=== PATIENT | female | born 1985 | race Caucasian/White ===

== ENCOUNTER 2016-08-30 16:10 | Observation (INO) | payer MEDICARE, MEDICAID ==
[~2016-08-30] VITALS: Ht 157.5 cm; Wt 78.0 kg
[~2016-08-30 16:10] MED LIST: BENADRYL50 MG PO; NORCO 10/325 TA1 TA1 PO; OXANDRIN10 MG PO; OXYCONTIN10 MG PO; STOOL SOFTENER240 MG PO; SYNTHROID75 MCG PO; TENORMIN25 MG PO; TYLENOL #4 W/CO1 TAB; XANAX2 MG PO
--- NOTE | 2016-08-30 17:57 | NUR ---
PATIENT REQUESTED SOMETHING FOR "STOMACH CRAMPS." CHECKED ORDERS, NO ORDERS. TOLD PATIENT THERE IS NOTHING ORDERED I STATED "HE DID NOT ORDER ANYTHING FOR STOMACH CRAMPS. HE DID PUT IN A CONSULT FOR THE GI DOCTOR SO I DON'T KNOW IF MAYBE HE IS WANTING TO SEE WHAT SHE IS GOING TO ORDER OR WHAT." PATIENT STATED "WELL, HE DID NOT ORDER ANYTHING BECAUSE HE ORDERED MY SUPPOSITORY AND I WAS NOT ABLE TO GET IT BECAUSE IT WAS $800. I AM ABOUT TO GET VERY FRUSTRATED ABOUT THIS." I STATED "LET ME GO CALL HIM AND I WILL BE BACK TO ACCESS YOUR PORT." SPOKE WITH , SEE ORDERS.
[2016-08-30 18:26] LABS: BASOPHILS 0.3 % (0.0-2.0); EOSINOPHILS 3.7 % (0-7); HEMATOCRIT 39.8 % (36.0-48.0); HEMOGLOBIN 13.5 g/dL (12-16); IMMATURE GRANULOCYTES 0.1 % (0-5); LYMPHOCYTES 27.8 % (15-50); MCH 33.3 pg (26.0-34.0); MCHC 33.9 g/dL (31.0-37.0); MEAN PLATELET VOLUME 10.2 fL (7.4-10.4); NEUTROPHILS 58.1 % (40-80); PLATELET COUNT 214 10x3/uL (130-400); RBC 4.06 10x6/uL (4.00-5.40); RDW 12.3 % (11.5-14.5); WBC 7.5 10x3/uL (4.8-10.8)
[2016-08-30 18:47] VITALS: BP 140/94; BMI 31.5
[2016-08-30 18:49] LABS: ALBUMIN 3.6 g/dL (3.4-5.0); ANION GAP 11.4 mmol/L (8-16); BILIRUBIN - TOTAL 0.32 mg/dL (0.2-1.3); CALCIUM 8.9 mg/dL (8.5-10.1); CARBON DIOXIDE 29.6 mmol/L (21.0-32.0); PROTEIN - SERUM 6.8 g/dL (6.4-8.2)
[2016-08-30 19:06] LABS: AMYLASE - SERUM 66 U/L (25-115); LIPASE 160 U/L (73-393)
[2016-08-30] MEDS ORDERED: TYLENOL W/CODEI1 TAB PO (19:08)
[2016-08-30] MEDS ORDERED: DANOCRINE200 MG PO (19:11)
[2016-08-30] MEDS ORDERED: LIPITOR20 MG PO (19:12)
--- NOTE | 2016-08-30 20:00 | NUR ---
ASSESSMENT COMPLETED, PT C/O ABD CRAMPING, WAS MEDICATED BY PREVIOUS SHIFT, NO ACUTE DISTRESS NOTED, SR'S UP X2, CL IN REACH, WILL MONITOR
[2016-08-30 21:00] VITALS: BP 114/73
--- NOTE | 2016-08-30 21:36 | NUR ---
MEDS GIVEN PER MAR, TORY WELL, CL IN REACH
--- NOTE | 2016-08-30 21:40 | NUR ---
EGD PROCEDURE EXPLAINED, CONSENTS OBTAINED, INSTRUCTED PT ON NPO STATUS AFTER MIDNIGHT, SANDWHICH PROVIDED PER REQUEST, CL IN REACH
--- NOTE | 2016-08-30 22:17 | NUR ---
PRN DILAUDID GIVEN FOR C/O ABD PAIN 04/24, TORY WELL, CL IN REACH
[2016-08-31 05:00] VITALS: BP 93/48
--- NOTE | 2016-08-31 05:28 | NUR ---
PRN DILAUDID GIVEN FOR C/O ABD PAIN 03/25, TORY WELL, CL IN REACH
--- NOTE | 2016-08-31 07:00 | NUR ---
REPORT RECEIVED FROM CARDIOTHORACIC ICU RN NURSE. CALL LIGHT IN REACH.
[2016-08-31 07:57] VITALS: BP 105/57
--- NOTE | 2016-08-31 07:58 | NUR ---
ASSESSMENT COMPLETED. STATES PAIN IS A 10. WANTS MD CALLED. NO OTHER NEEDS VOICED. CALL LIGHT IN REACH. WILL CONTINUE WITH PLAN OF CARE.
--- NOTE | 2016-08-31 08:21 | NUR ---
URINE SAMPLE COLLECTED AND SENT TO LAB FOR TESTING.
--- NOTE | 2016-08-31 08:34 | NUR ---
CALLED DR. JACOBS'S OFFICE FOR PATIENT'E REQUEST. SPOKE WITH HER NURSE. WAITING REIMBURSEMENT SPECIALIST BACK.
--- NOTE | 2016-08-31 08:39 | NUR ---
SPOKE WITH GEORGES AT DR. JACOBS'S OFFICE. STATES THAT PATIENT CANNOT HAVE DILAUDID 2 MG IV EVERY 4 HOURS SHE WANTS BUT SHE CAN HAVE NORCO 10/325 EVERY4-6 PRN FOR BREAKTHROUGH PAIN. WILL INFORM PATIENT.
--- NOTE | 2016-08-31 09:14 | NUR ---
DILAUDID 1 MG SIVP PER C/O PAIN WITH AM MEDS ADMINISTSERED. CALL LIGHT IN REACH.
[2016-08-31 09:20] LABS: APPEARANCE CLEAR (CLEAR); BILIRUBIN NEGATIVE (NEGATIVE); COLOR YELLOW (YELLOW); GLUCOSE NEGATIVE (NEGATIVE); KETONE NEGATIVE (NEGATIVE); LEUKOCYTE ESTERASE NEGATIVE (NEGATIVE); NITRITE NEGATIVE (NEGATIVE); PROTEIN NEGATIVE (NEGATIVE); UROBILINOGEN NORMAL (NORMAL)
--- NOTE | 2016-08-31 11:36 | NUR ---
NORCO PO PER PATIENT REQUEST FOR BREAKTHROUGH PAIN. ZOFRAN 8 MG SIVP. CALL LIGHT IN REACH.
[2016-08-31 12:35] VITALS: BP 90/50
--- NOTE | 2016-08-31 12:56 | NUR ---
Patient Name: MAXWELL LOZA Admission Status: Urgent Accout number: [id number] Admission Date: 08-30-2016 : 1985 Admission Diagnosis: Attending: SOHAM Current LOS: 1 Anticipated DC Date: 09-03-2016 Planned Disposition: Home Primary Insurance: [employer] CHOICE PPO MCR ADVANT Discharge Planning Comments: CM MET WITH PATIENT REGARDING D/C NEEDS AND PLANS. PATIENT STATED SHE LIVES WITH HER BOYFRIEND AND HE WILL DRIVE HER HOME AT DISCHARGE. PATIENT STATED THERE ARE ABOUT 20 STEPS W/RAILS TO ENTER HOME AND NO STAIRS INSIDE. PATIENT IS INDEPENDENT WITH HER CARE AND HAS NO DME AT HOME. PATIENTS PCP IS DR. LINDSEY AND USES [facility] IN [place] ON [facility]. PATIENT HAS NOT HAD HOME HEALTH AND DENIES NEEDS FOR IT. CM WILL CONTINUE TO FOLLOW PATIENT WITH D/C NEEDS AND PLANS. PCP DR. LINDSEY [facility] ([phone]) IZABELA LYON ([place]OREY) [phone] Equipment Driver: Dipika Portillo Is the patient Alert and Oriented? Yes 0 * How many steps to enter\exit or inside your home? 20 W/RAILS 0 * PCP DR. LINDSEY 0 * Pharmacy [facility] ([facility] [phone] * Preadmission Environment Home with Family 0 * ADLs Independent 0 * Equipment None 0 * List name and contact numbers for known caregivers / representatives who currently or will assist patient after discharge: IZABELA LYON ([place]) [phone] * Community resources currently utilized None 0 * Additional services required to return to the preadmission environment? Yes 0 * Can the patient safely return to the preadmission environment? Yes 0 * Has this patient been hospitalized within the prior 30 days at any hospital? No 0 Grand Total: 0
--- NOTE | 2016-08-31 13:32 | NUR ---
MARKO HUNT, ADMINISTERED DILAUDID IV.
[2016-08-31 13:46] VITALS: Ht 157.5 cm; Wt 78.0 kg
[2016-08-31 14:36] LABS: HCG URINE NEGATIVE (NEGATIVE)
[2016-08-31 15:31] VITALS: BP 104/57
--- NOTE | 2016-08-31 15:31 | NUR ---
REQUESTING PAIN PILL. GIANA 2 PO. CALL LIGHT IN REACH.
--- NOTE | 2016-08-31 16:30 | NUR ---
TO GI VIA LAB.
--- NOTE | 2016-08-31 18:11 | NUR ---
BACK TO ROOM. DILAUDID 1 MG SIVP. NO CHANGES IN INITIAL ASSESSMENT. VISITORS IN ROOM. CALL LIGHT IN REACH. WILL CONTINUE WITH PLAN OF CARE.
--- NOTE | 2016-08-31 19:10 | NUR ---
ASSESSMENT COMPLETED, NO ACUTE DISTRESS NOTED, VISITORS IN ROOM, CL IN REACH
--- NOTE | 2016-08-31 21:18 | NUR ---
MEDS GIVEN PER MAR ALONG WITH NORCO FOR ABD PAIN 02/22, TORY WELL, CL IN REACH
[2016-08-31 21:25] VITALS: BP 112/68
--- NOTE | 2016-08-31 22:15 | NUR ---
AMBULATING IN [place] WITH VISITOR, NO DISTRES NOTED
--- NOTE | 2016-09-01 00:53 | NUR ---
DILAUDID GIVEN PER MAR FOR C/O ABD PAIN 02/22, TORY WELL, CL IN REACH
--- NOTE | 2016-09-01 02:46 | NUR ---
PT RETURNED FROM WALKING, REQUESTED ZOFRAN, ADMINISTERED, PER LEIDA, TORY WELL, CL IN REACH
[2016-09-01 06:50] VITALS: BP 110/63
--- NOTE | 2016-09-01 07:00 | NUR ---
REPORT RECEIVED FROM FLASK FITTER NURSE. CALL LIGHT IN REACH.
[2016-09-01 08:20] VITALS: BP 101/53
--- NOTE | 2016-09-01 08:41 | NUR ---
ASSESSMENT COMPLETED. AM MEDS ADMINISTERED PO WITH [place] [employer]. CALL LIGHT IN REACH. WILL CONTINUE WITH PLAN OF CARE. PATIENT WALKS IN [place] CONSTANTLY.
--- NOTE | 2016-09-01 10:10 | NUR ---
DILAUDID 1 MG SIVP PER C/O PAIN OF 8. CALL LIGHT IN REACH.
--- NOTE | 2016-09-01 11:43 | NUR ---
CARAFATE PO. STATES PAIN HAS DECREASED TO A 6.
[2016-09-01 12:19] VITALS: BP 108/65
--- NOTE | 2016-09-01 12:50 | NUR ---
AFTER EATING LUNCH, PATIENT DECIDED TO WALK IN HALLWAYS.
--- NOTE | 2016-09-01 14:44 | OP ---
PATIENT NAME: MAXWELL ROGERS MEDICAL RECORD: [id number] :[birth year] LOCATION:D[address] [id number] ADMISSION DATE:08/30/16 SURGEON: ABIMBOLA JACOBS MD DATE OF OPERATION: 08/31/2016 PROCEDURE: EGD with biopsy. REFERRING PHYSICIAN: Naeem Lindsey MD INDICATIONS: Ms. Rogers is a pleasant 30-year-old woman with a history of hereditary angioedema, who presented with symptoms of nausea, vomiting, abdominal pain. Her abdominal pain is chronic and she recalls that dating back to age 7. She has had a recent flare of her abdominal pain, is predominantly in the epigastric area, but also in bilateral lower abdomen. She takes danazol t.i.d. for her hereditary angioedema control. She had a right oophorectomy 08/07/2016. Her last CT scan was in [facility] in [place] May 2016 with finding showing the right adnexal mass. She also has a history of scoliosis, it has been advised she needs surgery (i.e., claus placement). She has an appointment with Dr. Reeves in September 2016. She presents for inpatient EGD. PREMEDICATIONS: Total IV anesthesia (ASA 3, history of hereditary angioedema). INSTRUMENT: Olympus video gastroscope. PROCEDURE AND FINDINGS: After receiving informed consent, Ms. Rogers's posterior pharynx was anesthetized with Cetacaine spray, placed in left lateral decubitus position and sedated as per anesthesia. After achieving an adequate level of sedation, gastroscope was introduced per orally and advanced to the duodenum without difficulty. The esophageal mucosa was without erythema, ulcers, strictures or masses, appeared normal down the GE junction. Small sliding type hiatal hernia is present. Gastric mucosa was remarkable for diffuse erythema involving the antrum with a bilious fluid backwash. Antral biopsies were obtained to rule out Helicobacter pylori. There were no lesions seen along the incisura, in the cardia or fundus, or in the body of the stomach. Pylorus was patent and competent. Duodenal mucosa was without erythema or ulcers, appeared normal through the second portion. Biopsies were taken from the second portion of duodenum to rule out celiac disease. The gastroscope was then withdrawn. Ms. Rogers tolerated the procedure well, no immediate complications. ASSESSMENT: 1. Small sliding type hiatal hernia. 2. Bilious gastritis status post antral biopsy. RECOMMENDATIONS: 1. Protonix 40 mg p.o. daily. 2. Add Carafate 1 g p.o. 3 times a day. 3. Colonoscopy is contraindicated at this time secondary to her recent pelvic surgery can be done at a later date when she has appropriately recover from her post-oophorectomy. TRANSINT:[id number] Voice Confirmation ID: [id number] DOCUMENT ID: [id number] OPERATIVE REPORT [id number] MAXWELL ROGERS TERRI MD at 1444 CC: NAEEM LINDSEY MD [id number] DICTATION DATE: 08/31/16 174 BRUSHER: 08/31/16 9519 ADM IN [place] [id number] [place] [address]
--- NOTE | 2016-09-01 14:45 | NUR ---
REQUESTING IV PAIN MED. DILAUDID 1 MG SIVP. CALL LIGHT IN REACH.
[2016-09-01 16:55] VITALS: BP 110/77
--- NOTE | 2016-09-01 16:55 | NUR ---
PATIENT ALERT IN HIGH TATE POSITION. RESPIRATIONS EVEN AND UNLABORED. SIDE RAILS UP X2. BED IN LOW POSITION. CALL LIGHT IN REACH.
--- NOTE | 2016-09-01 16:56 | NUR ---
NORCO AND CARAFATE PO.
--- NOTE | 2016-09-01 18:14 | NUR ---
TO CT AND BACK. DILAUDID 1 MG SIVP PER PATIENT REQUEST D/T PAIN. NO CHANGES IN INITIAL ASSESSMENT. CALL LIGHT IN REACH. WILL CONTINUE WITH PLAN OF CARE.
--- NOTE | 2016-09-01 20:00 | NUR ---
PATIENT IN BED WATCHING TV. HOB 30 DEGREES. AAOX4. RR EVEN AND UNLABORED. 0 S/S OF DISTRESS. DENIES PAIN AT THIS TIME. LEFT PORT PATENT WITH NO REDNESS OR SWELLING. BOYFRIEND AT BEDSIDE. SRX2. BED LOW. CALL LIGHT WITHIN REACH.
--- NOTE | 2016-09-01 21:05 | NUR ---
ASSESSMENT COMPLETE. NIGHTTIME MEDS GIVEN. PATIENT STATES THAT HER PAIN IS NOW AN 8/10. EXPLAINED TO PATIENT THAT PAIN MEDICATION WAS NOT DUE UNTIL 2200.
--- NOTE | 2016-09-01 22:05 | NUR ---
DILAUDID GIVEN FOR PAIN. EXPLAINED TO PATIENT THAT DR. LINDSEY DC'D HER NORCO AND CHANGED THE DILAUDID FROM EVERY 4 HOURS TO EVERY 8 HOURS.
[2016-09-01 23:42] LABS: UDS - AMPHET NEGATIVE QUAL (NEGATIVE); UDS - BARB NEGATIVE QUAL (NEGATIVE); UDS - BENZO NEGATIVE QUAL (NEGATIVE); UDS - COCAINE NEGATIVE QUAL (NEGATIVE); UDS - METH NEGATIVE QUAL (NEGATIVE); UDS - OPIATE POSITIVE QUAL (NEGATIVE); UDS - PCP NEGATIVE QUAL (NEGATIVE); UDS - THC NEGATIVE QUAL (NEGATIVE)
[2016-09-02 00:59] VITALS: BP 113/61
--- NOTE | 2016-09-02 01:00 | NUR ---
PATIENT STATES PAIN IS BACK TO AN 810. B&O SUPPOSITORY GIVEN PER ORDER.
[2016-09-02 04:00] VITALS: BP 106/64
[2016-09-02 06:31] LABS: ANION GAP 10.6 mmol/L (8-16); CALCIUM 8.5 mg/dL (8.5-10.1); CARBON DIOXIDE 28.7 mmol/L (21.0-32.0); CREATININE - SERUM 1.2 mg/dL (0.6-1.3); POTASSIUM - SERUM 4.3 mmol/L (3.5-5.1)
[2016-09-02 07:59] VITALS: BP 105/62
--- NOTE | 2016-09-02 08:00 | NUR ---
PT STATES "I'M NOT HAPPY WITH MY CURRENT PAIN MEDICATION, I REFUSE THE SUPPOSITORY IT CAUSED MORE CRAMPS THEN HELPED." PT NOTIFIED DILAUDED COULD NOT BE GIVEN TILL 1:45, NO OTHER COMPLAINTS, PT ASSESSMENT COMPLETE, CALL LIGHT IN REACH, WILL CONTINUE PLAN OF CARE
--- NOTE | 2016-09-02 08:55 | NUR ---
AWAKE AND ALERT. ORIENTED X3. C/O ABDOMINAL PAIN THIS AM. TO SOON FOR PRN MEDS. GIVEN ICE PACK TO SEE IF IT WOULD HELP ANY. REPORTS HEAT ONLY INCREASES THE PAIN. WILL MONITOR. LUNGS ARE CLEAR BILATERALLY, NO COUGH NOTED. SKIN IS INTACT WITHOUT REDNESS. LEFT PORT IS PATENT WITHOUT REDNESS AT INSERTION SITE. FAMILY AT BEDSIDE. DENIES NEEDS. REFUSED BREAKFAST WELL OFFER OF ALTERNATIVE FOODS.
--- NOTE | 2016-09-02 10:35 | NUR ---
PT LEFT ROOM FOR A WALK, NO CURRENT COMPLAINTS, WILL CONTINUE TO MONITOR
[2016-09-02 12:08] VITALS: BP 128/82
--- NOTE | 2016-09-02 15:46 | NUR ---
PT COMPLAINED OF HAVING A DIFFICULT TIME CATCHING HER BREATH, O2 SAT 95% RA, NASAL CANNULA ON 2L OXYGEN PLACED ON PT
--- NOTE | 2016-09-02 16:00 | NUR ---
B&O SUPP GIVEN FOR ABDOMINAL CRAMPING, MEDS GIVEN PER MAR, NO CURRENT COMPLAINTS
[2016-09-02 16:23] VITALS: BP 117/70
--- NOTE | 2016-09-02 16:45 | NUR ---
ZOFRAN GIVEN FOR NAUSEA, PAIN LEVEL AT A 8, NO CURRENT COMPLAINTS, WILL CONTINUE TO MONITOR
--- NOTE | 2016-09-02 16:57 | NUR ---
PT RESTING IN BED, REQUESTED ZOFRAN FOR NAUSEA-GIVEN PER SEP, NO OTHER COMPLAINTS AT THIS TIME, CALL LIGHT IN REACH, PAIN AN 8 ON A SCALE OF 0-10, BED LOWEST POSITION, WILL CONTINUE PLAN OF CARE
[2016-09-02 19:00] VITALS: BP 109/68
--- NOTE | 2016-09-02 19:30 | NUR ---
REC'D IN ROOM AWAKE AND ALERT. RESP EVEN AND UNLABORED WITH NO DISTRESS NOTED. CAN EXPRESS NEEDS AND WANTS. C/O PAIN RATING 10/10 IN PAIN SCALE.ASSESSMENT COMPLETED. FAMILY AT BEDSIDE. C/L IN REACH AT BEDSIDE
--- NOTE | 2016-09-02 22:23 | NUR ---
UP OUT OF BED CLEANING UP THE SINK. SIGNIFICANT OTHER AT THE BEDSIDE. HAS REQUESTED A SUPPOSITORY AND ZOFRAN AT THIS TIME. ASSIGNED NURSE ADVISED OF PT NEED. NO DISTRESS NOTED AND RESPIRATIONS ARE EASY.
[2016-09-03] VITALS: BP 101/55
[2016-09-03 04:00] VITALS: BP 105/52
--- NOTE | 2016-09-03 07:58 | NUR ---
PT. AWAKE ALERT ORIENTED IN BED RESP. EVEN AND NONLABORED WITH LUNG SOUNDS CLEAR AND COMPLAINTS OF PAIN OF 9 ON SCALE OF 1-10 IN ABDOMEN. LEFT PORT PATENT WITH NO REDNESS AT INSERTION SITE. VISITOR IN ROOM WITH PT. BED AT LOWEST LEVEL AND SRX2 CALL LIGHT IN REACH WILL CONTINUE TO MONITOR
[2016-09-03 08:04] VITALS: BP 102/69
--- NOTE | 2016-09-03 08:49 | NUR ---
PT. C/O OF NUASEA. ZOFRAN 8MG IV GIVEN SLOW IVP AT THIS TIME. WILL CONTINUE TO MONITOR PT.
--- NOTE | 2016-09-03 09:15 | NUR ---
DR. LINDSEY CALLED PER PT. REQUEST FOR PAIN MEDS OR TO DISCHARGE HOME. NO NEW ORDERS STATED HE WOULD BE IN THIS AFTERNOON TO DISCHARGE PT.
[2016-09-03 12:28] VITALS: BP 109/58
--- NOTE | 2016-09-03 15:00 | NUR ---
SPOKE TO DR LINDSEY FOR PT. DESIRE TO DISCHARGE HOME. NO NEW ORDERS.
--- NOTE | 2016-09-03 19:25 | NUR ---
PT ASSESSMENT COMPLETED AT THIS TIME PT AAOX4 AMBULATORY WITH NO ASSISTANCE NEEDED AND INQUIERED ABOUT DR FOOTE ROUNDING AND DISCHARGE HOME INFORM PT THAT ONCE ORDER WAS RECIVED WOULD GET D/C PAPERS AND PT WOULD BE ABLE TO LEAVE THIS PM PT VERBALIZED UNDERSTANDING
--- NOTE | 2016-09-03 20:40 | NUR ---
DR STEWART ROUNDED AND D/C PAPERS RECIVED [facility] WORKING ON D/C PAPERS AND WHEN COMPLETED WILL REVIEW WITH PT. PORT TO LEFT CHEST D/C NEEDLE INTACT AND BANDAGE 2X2 AND TEGEDERM PLACED NO DISTRESS OBSERVED CALL LIGHT IN REACHS RX2 WILL MONITOR
[2016-09-03] MEDS ORDERED: HYDROCODON-ACE1 EAC7 PO (20:45)
[2016-09-06 15:25] LABS: C1 ESTERASE INHIBITOR 15 mg/dL (21-39)
== END 2016-09-03 21:56 | disposition home or self-care (01) ==
LOC: D.MS 16:10 → OBSVTIME 16:10 → D.SDCHOLD 16:10 → D.MS 16:20
PROVIDERS: Internal Medicine Gastroenterology; ADMIT Legal Medicine
DX: R10.9 Unspecified abdominal pain (principal); D84.1 Defects in the complement system; K29.60 Other gastritis without bleeding; K44.9 Diaphragmatic hernia without obstruction or gangrene; M41.9 Scoliosis, unspecified; I10 Essential (primary) hypertension; E78.5 Hyperlipidemia, unspecified; E03.9 Hypothyroidism, unspecified

== ENCOUNTER 2016-09-22 09:17 | Emergency (ER) | payer MEDICARE, MEDICAID ==
[2016-08-31 13:46] VITALS: BMI 31.4
[~2016-09-22 09:17] MED LIST changes: +DANOCRINE200 MG PO; +HYDROCODON-ACE1 EAC7 PO; +LIPITOR20 MG PO; +TYLENOL W/CODEI1 TAB PO
[2016-09-22 10:21] LABS: BASOPHILS 0.4 % (0.0-2.0); EOSINOPHILS 2.8 % (0-7); HEMATOCRIT 41.7 % (36.0-48.0); HEMOGLOBIN 14.3 g/dL (12-16); IMMATURE GRANULOCYTES 0.2 % (0-5); LYMPHOCYTES 20.4 % (15-50); MCH 33.3 pg (26.0-34.0); MCHC 34.3 g/dL (31.0-37.0); MCV 97.2 fL (80.0-100.0); MEAN PLATELET VOLUME 10.8 fL (7.4-10.4); MONOCYTES 9.1 % (2-11); NEUTROPHILS 67.1 % (40-80); PLATELET COUNT 208 10x3/uL (130-400); RBC 4.29 10x6/uL (4.00-5.40); RDW 12.7 % (11.5-14.5); WBC 9.2 10x3/uL (4.8-10.8)
== END 2016-09-22 15:14 | disposition left against medical advice (07) ==
LOC: D.ER 09:17
PROVIDERS: Emergency Medicine
DX: R10.84 Generalized abdominal pain (principal)

== ENCOUNTER 2016-10-13 09:00 | Emergency (ER) | payer MEDICARE, MEDICAID ==
[2016-08-31 13:46] VITALS: BMI 31.4
[2016-10-13 10:13] LABS: BASOPHILS 0.5 % (0.0-2.0); EOSINOPHILS 3.7 % (0-7); HEMATOCRIT 40.4 % (36.0-48.0); HEMOGLOBIN 13.9 g/dL (12-16); IMMATURE GRANULOCYTES 0.3 % (0-5); LYMPHOCYTES 17.1 % (15-50); MCHC 34.4 g/dL (31.0-37.0); MEAN PLATELET VOLUME 10.9 fL (7.4-10.4); MONOCYTES 10.6 % (2-11); NEUTROPHILS 67.8 % (40-80); PLATELET COUNT 247 10x3/uL (130-400); RBC 4.21 10x6/uL (4.00-5.40); RDW 12.5 % (11.5-14.5)
[2016-10-13 10:17] LABS: APPEARANCE CLEAR (CLEAR); BILIRUBIN NEGATIVE (NEGATIVE); COLOR YELLOW (YELLOW); GLUCOSE NEGATIVE (NEGATIVE); KETONE NEGATIVE (NEGATIVE); LEUKOCYTE ESTERASE NEGATIVE (NEGATIVE); NITRITE NEGATIVE (NEGATIVE); PROTEIN NEGATIVE (NEGATIVE); SPECIFIC GRAVITY 1.005 (1.005-1.020); UROBILINOGEN NORMAL (NORMAL)
[2016-10-13 10:25] LABS: UDS - AMPHET NEGATIVE QUAL (NEGATIVE); UDS - BARB NEGATIVE QUAL (NEGATIVE); UDS - BENZO NEGATIVE QUAL (NEGATIVE); UDS - COCAINE NEGATIVE QUAL (NEGATIVE); UDS - METH NEGATIVE QUAL (NEGATIVE); UDS - OPIATE POSITIVE QUAL (NEGATIVE); UDS - PCP NEGATIVE QUAL (NEGATIVE); UDS - THC NEGATIVE QUAL (NEGATIVE)
[2016-10-13 10:37] LABS: ALBUMIN 3.6 g/dL (3.4-5.0); ALKALINE PHOSPHATASE 68 U/L (46-116); ALT (SGPT) 48 U/L (10-68); AMYLASE - SERUM 46 U/L (25-115); BILIRUBIN - TOTAL 0.39 mg/dL (0.2-1.3); CALC OSMOLALITY 274 mosm/kg (275-300); CALCIUM 9.3 mg/dL (8.5-10.1); CARBON DIOXIDE 26.5 mmol/L (21.0-32.0); CHLORIDE - SERUM 106 mmol/L (98-107); CREATININE - SERUM 0.9 mg/dL (0.6-1.3); GLUCOSE 83 mg/dL (74-106); LIPASE 131 U/L (73-393); POTASSIUM - SERUM 3.9 mmol/L (3.5-5.1); PROTEIN - SERUM 7.3 g/dL (6.4-8.2); SODIUM 140 mmol/L (136-145); UREA NITROGEN 5 mg/dL (7-18); eGFR NON AFRICAN AMERICAN 77 mL/min (90-120)
== END 2016-10-13 11:15 | disposition home or self-care (01) ==
LOC: D.ER 09:00
PROVIDERS: Family Medicine
DX: R11.10 Vomiting, unspecified (principal); R10.9 Unspecified abdominal pain; F41.9 Anxiety disorder, unspecified; I10 Essential (primary) hypertension

== ENCOUNTER 2018-07-20 04:13 | Emergency (ER) | payer MEDICARE, MEDICAID ==
[~2018-07-20] VITALS: Ht 157.5 cm; Wt 77.1 kg
[2018-07-20 04:19] VITALS: Ht 157.5 cm; Wt 77.1 kg
[2018-07-20] MEDS ORDERED: OMEPRAZOLE40 MG PO (04:20)
[2018-07-20] MEDS ORDERED: XANAX2 MG PO (04:21)
[2018-07-20 05:12] LABS: BASOPHILS 0.4 % (0-2); EOSINOPHILS 2.3 % (0-7); HEMATOCRIT 41.4 % (36.0-48.0); HEMOGLOBIN 14.3 g/dL (12-16); IMMATURE GRANULOCYTES 0.2 % (0-5); LYMPHOCYTES 23.6 % (15-50); MCH 33.8 pg (26.0-34.0); MCHC 34.5 g/dL (31.0-37.0); MCV 97.9 fL (80.0-100.0); MONOCYTES 7.9 % (2-11); NEUTROPHILS 65.6 % (40-80); PLATELET COUNT 183 10x3/uL (130-400); RBC 4.23 10x6/uL (4.00-5.40); WBC 5.7 10x3/uL (4.8-10.8)
[2018-07-20 05:25] LABS: ALBUMIN 3.4 g/dL (3.4-5.0); ANION GAP 13.1 mmol/L (8-16); BILIRUBIN - TOTAL 0.61 mg/dL (0.2-1.3); CALCIUM 8.9 mg/dL (8.5-10.1); CARBON DIOXIDE 27.6 mmol/L (21.0-32.0); POTASSIUM - SERUM 3.7 mmol/L (3.5-5.1); PROTEIN - SERUM 7.1 g/dL (6.4-8.2)
[2018-07-20 06:35] LABS: APPEARANCE CLEAR (CLEAR); BILIRUBIN NEGATIVE (NEGATIVE); COLOR YELLOW (YELLOW); GLUCOSE NEGATIVE (NEGATIVE); KETONE NEGATIVE (NEGATIVE); NITRITE NEGATIVE (NEGATIVE); PROTEIN NEGATIVE (NEGATIVE); UROBILINOGEN NORMAL (NORMAL)
[2018-07-20 06:37] LABS: BACTERIA FEW /hpf (NONE SEEN); EPITHELIAL CELLS 0-5 /hpf (0-5); RED CELLS - URINE NONE SEEN /hpf (0-5); WHITE CELLS - URINE 0-5 /hpf (0-5)
[2018-07-20] MEDS ORDERED: BENTYL10 MG PO (07:16)
[2018-07-20 08:06] VITALS: BP 139/83
== END 2018-07-20 08:07 | disposition home or self-care (01) ==
LOC: D.ER 04:13
PROVIDERS: Family Medicine
DX: D84.1 Defects in the complement system (principal); R11.2 Nausea with vomiting, unspecified; I10 Essential (primary) hypertension; Z86.59 Personal history of other mental and behavioral disorders; F17.200 Nicotine dependence, unspecified, uncomplicated

== ENCOUNTER 2018-09-13 04:31 | Emergency (ER) | payer MEDICARE, MEDICAID ==
[~2018-09-13] VITALS: Ht 157.5 cm; Wt 79.5 kg
[~2018-09-13 04:31] MED LIST changes: +BENTYL10 MG PO; +OMEPRAZOLE40 MG PO
[2018-09-13 04:38] VITALS: Ht 157.5 cm; Wt 79.5 kg
[2018-09-13 05:23] LABS: BASOPHILS 0.6 % (0-2); EOSINOPHILS 3.7 % (0-7); HEMATOCRIT 43.5 % (36.0-48.0); IMMATURE GRANULOCYTES 0.1 % (0-5); LYMPHOCYTES 27.7 % (15-50); MCH 33.1 pg (26.0-34.0); MCHC 34.5 g/dL (31.0-37.0); MONOCYTES 11.1 % (2-11); NEUTROPHILS 56.8 % (40-80); PLATELET COUNT 201 10x3/uL (130-400); RBC 4.53 10x6/uL (4.00-5.40); RDW 12.3 % (11.5-14.5); WBC 6.8 10x3/uL (4.8-10.8)
[2018-09-13 05:35] LABS: ALBUMIN 3.5 g/dL (3.4-5.0); ANION GAP 14.5 mmol/L (8-16); BILIRUBIN - TOTAL 0.18 mg/dL (0.2-1.3); CALCIUM 9.1 mg/dL (8.5-10.1); CREATININE - SERUM 1.1 mg/dL (0.6-1.3); POTASSIUM - SERUM 4.5 mmol/L (3.5-5.1); PROTEIN - SERUM 7.4 g/dL (6.4-8.2)
[2018-09-13] MEDS ORDERED: ZOFRAN ODT4 MG/UDTAB PO (07:21)
[2018-09-13] MEDS ORDERED: LEVSIN/ANASP0.125 MG PO (07:21)
[2018-09-13] MEDS ORDERED: FLORASTOR250 MG PO (07:21)
[2018-09-13 07:56] VITALS: BP 127/83
[2018-09-13 08:07] LABS: APPEARANCE CLEAR (CLEAR); BILIRUBIN NEGATIVE (NEGATIVE); COLOR YELLOW (YELLOW); GLUCOSE NEGATIVE (NEGATIVE); KETONE NEGATIVE (NEGATIVE); NITRITE NEGATIVE (NEGATIVE); PROTEIN NEGATIVE (NEGATIVE); UROBILINOGEN NORMAL (NORMAL)
== END 2018-09-13 07:54 | disposition home or self-care (01) ==
LOC: D.ER 04:31
PROVIDERS: Family Medicine
DX: D84.1 Defects in the complement system (principal); R10.9 Unspecified abdominal pain

== ENCOUNTER 2019-01-22 00:07 | Inpatient (IN) | payer MEDICARE, MEDICAID ==
[~2019-01-22] VITALS: Ht 157.5 cm; Wt 69.9 kg
[~2019-01-22 00:07] MED LIST changes: +FLORASTOR250 MG PO; +LEVSIN/ANASP0.125 MG PO; +ZOFRAN ODT4 MG/UDTAB PO
[2019-01-22 01:30] LABS: BASOPHILS 0.4 % (0-2); EOSINOPHILS 3.7 % (0-7); HEMATOCRIT 39.7 % (36.0-48.0); HEMOGLOBIN 13.4 g/dL (12-16); IMMATURE GRANULOCYTES 0.3 % (0-5); MCHC 33.8 g/dL (31.0-37.0); MCV 97.8 fL (80.0-100.0); MEAN PLATELET VOLUME 11.3 fL (7.4-10.4); MONOCYTES 8.5 % (2-11); NEUTROPHILS 53.1 % (40-80); PLATELET COUNT 204 10x3/uL (130-400); RBC 4.06 10x6/uL (4.00-5.40); WBC 9.6 10x3/uL (4.8-10.8)
[2019-01-22 01:36] LABS: APPEARANCE CLEAR (CLEAR); BILIRUBIN NEGATIVE (NEGATIVE); COLOR YELLOW (YELLOW); GLUCOSE NEGATIVE (NEGATIVE); KETONE NEGATIVE (NEGATIVE); NITRITE NEGATIVE (NEGATIVE); PROTEIN NEGATIVE (NEGATIVE); SPECIFIC GRAVITY 1.005 (1.005-1.020); UROBILINOGEN NORMAL (NORMAL)
[2019-01-22 01:50] LABS: ALBUMIN 3.5 g/dL (3.4-5.0); ANION GAP 10.9 mmol/L (8-16); BILIRUBIN - TOTAL 0.32 mg/dL (0.2-1.3); CALCIUM 8.7 mg/dL (8.5-10.1); CARBON DIOXIDE 28.9 mmol/L (21.0-32.0); POTASSIUM - SERUM 3.8 mmol/L (3.5-5.1); PROTEIN - SERUM 6.8 g/dL (6.4-8.2)
[2019-01-22 01:54] LABS: HCG SERUM NEGATIVE (NEGATIVE)
[2019-01-22 07:43] VITALS: BMI 28.2
[2019-01-22 08:49] VITALS: BP 121/58
[2019-01-22 11:00] VITALS: BP 108/60
[2019-01-22 13:23] VITALS: BP 110/68
[2019-01-22 13:39] VITALS: BMI 28.1
--- NOTE | 2019-01-22 14:32 | NUR ---
PT EDUCATED ON IMPORTANCE OF FALL PRECAUTIONS AND HOSPITAL STAY WITH INCREASED RISK FOR FALLS. PT VERBALIZES UNDERSTANDING AND REFUSES BED ALARM. PT EDUCATED ON FALL PRECAUTIONS AND NEED FOR PT TO STAY ON FLOOR. PT SIGNED RELEASE OF RESPONSIBLITY FOR BED/CHAIR ALARM. PAIN ADDRESSED. SEE EMAR. PT DENIES FURTHER NEEDS. BED IS IN THE LOWEST POSITION. CALL LIGHT AND BEDSIDE TABLE ARE WITHIN REACH. SIDE RAILS X 2. WILL CONT TO MONITOR.
--- NOTE | 2019-01-22 15:31 | NUR ---
PT REPORTS FEELING "WORSE THAN I DID WHEN I CAME IN". PT STATES, "I FEEL LIKE THEY REALLY NEED TO DO AN ULTRASOUND. I FEEL LIKE IT IS SOMETHING".
[2019-01-22 17:14] VITALS: Ht 157.5 cm; Wt 69.9 kg
[2019-01-22 17:43] VITALS: BP 109/60
--- NOTE | 2019-01-22 19:40 | NUR ---
IV RIGHT AC INFILTRATED. DC'D WITH CATHETER TIP INTACT. RESITED 20G IV TO LEFT FA X2 ATTEMPTS
[2019-01-22 20:50] VITALS: BP 126/74
[2019-01-23] VITALS: BP 128/70
--- NOTE | 2019-01-23 03:00 | NUR ---
IV LEFT FA INFILTRATED. PT AGITATED THAT HER PORT HAS NO BEEN ACCESSED YET AND DOES NOT WANT TO BE STUCK AGAIN FOR IV. PAGED SISI CLARK APN TO ACCESS LEFT CHEST PORT. AWAITING CALL BACK
[2019-01-23 04:00] VITALS: BP 111/61
--- NOTE | 2019-01-23 04:45 | NUR ---
SPOKE WITH SISI CLARK APN, ORDERS TO ACCESS PORT. LEFT CHEST PORT ACCESSED WITH 19G 1.5IN NICKERSON NEEDLE. DRESSING APPLIED. INFUSING NS @ 200 WITH DILAUDID COP EXAMINER.
--- NOTE | 2019-01-23 06:00 | NUR ---
PT HAS UNHOOKED HERSELF FROM SUPERVISOR BONDING TWICE STATING WE TOLD HER SHE COULD NOT GO DOWNSTAIRS TO SMOKE WITH THE SUPERVISOR BONDING SO SHE'S "NOT GOING DOWN WITH IT." PT WAS ALSO TOLD SHE COULD NOT SINCE SHE PUT THE NICOTINE PATCH ON. SHE CAME OUT OF ROOM UNHOOKED FROM IV POLE A LITTLE LATER HOLDING PATCH IN HER HAND STATING THAT "THIS NICOTINE IS NOT ENOUGH MG WHICH IS WHY I HAVE TO GO DOWNSTAIRS." LOOKED AT PATCH IN HAND AND IT WAS PT SCOPALIMINE PATCH FROM BEHIND HER EAR. PT STATES OVER AND OVER THAT SHE DOES NOT REMEMBER ANYONE PUTTING THIS PATCH BEHIND HER EAR. SHE THEN ASKED WHERE HER NICOTINE PATCH WAS. PULLED PT GOWN UP OVER LEFT ARM TO SHOW PT PATCH AND IT WAS NOT THERE AFTER BEING PLACED BEHIND THE LEFT UPPER ARM AT 2100. COULD NOT LOCATE PATCH. PT STATES IT "WASN'T HELPING ANYWAY" AND WALKED AWAY DOWNSTAIRS STATING SHE IS GOING TO SMOKE.
[2019-01-23 06:36] LABS: BASOPHILS 0 % (0-2); EOSINOPHILS 0 % (0-7); HEMATOCRIT 34.8 % (36.0-48.0); HEMOGLOBIN 11.8 g/dL (12-16); IMMATURE GRANULOCYTES 0.3 % (0-5); LYMPHOCYTES 3.7 % (15-50); MCHC 33.9 g/dL (31.0-37.0); MCV 97.2 fL (80.0-100.0); MEAN PLATELET VOLUME 11.4 fL (7.4-10.4); MONOCYTES 3.7 % (2-11); NEUTROPHILS 92.3 % (40-80); PLATELET COUNT 177 10x3/uL (130-400); RBC 3.58 10x6/uL (4.00-5.40); RDW 12.8 % (11.5-14.5)
[2019-01-23 06:48] LABS: WBC 14.2 10x3/uL (4.8-10.8)
[2019-01-23 06:57] LABS: ALBUMIN 3.2 g/dL (3.4-5.0); ALKALINE PHOSPHATASE 56 U/L (46-116); ALT (SGPT) 35 U/L (10-68); BILIRUBIN - TOTAL 0.29 mg/dL (0.2-1.3); CALC OSMOLALITY 279 mosm/kg (275-300); CALCIUM 8.5 mg/dL (8.5-10.1); CARBON DIOXIDE 25.8 mmol/L (21.0-32.0); CHLORIDE - SERUM 105 mmol/L (98-107); CREATININE - SERUM 0.8 mg/dL (0.6-1.3); POTASSIUM - SERUM 3.9 mmol/L (3.5-5.1); PROTEIN - SERUM 6.3 g/dL (6.4-8.2); SODIUM 139 mmol/L (136-145); UREA NITROGEN 10 mg/dL (7-18); eGFR NON AFRICAN AMERICAN 86 mL/min (90-120)
[2019-01-23 06:58] LABS: GLUCOSE 144 mg/dL (74-106)
--- NOTE | 2019-01-23 07:30 | NUR ---
patient falling asleep while doing her assessment. barely wakes to answer questions. cl in reach wctm
[2019-01-23 09:48] VITALS: BP 114/59
--- NOTE | 2019-01-23 11:24 | NUR ---
PATIENT ASLEEP. RESP EVEN. MACHINE BEEPING INFUSION COMPLETE. BAG OF NS HUNG. RESET VOLUME. CL IN REACH NO NEEDS AT THIS TIME.
[2019-01-23] MEDS ORDERED: MEDROL DOSE PACK4 MG PO (12:07)
[2019-01-23] MEDS ORDERED: Nicoderm [PBKC] TRANSDERM (12:08)
--- NOTE | 2019-01-23 12:30 | NUR ---
PATIENT SITTING ON THE SIDE OF THE BED COUGHING. WCTM
[2019-01-23 13:19] VITALS: BP 124/80
--- NOTE | 2019-01-23 13:52 | MORECARE ---
CASE MANAGEMENT DISCHARGE SUMMARY PATIENT: MAXWELL LOZA UNIT: [id number] ADM DATE: 01/22/19 AGE: 33 : [birth year] SEX: F ROOM/BED: D.2225 AUTHOR: MARY DUMONT PHYSICIAN: REFERRING PHYSICIAN: JEFFREY MADDEN MD DATE OF SERVICE: 01/23/19 Discharge Plan Patient Name: MAXWELL LOZA Facility: [facility]:[place] : 1985 Planned Disposition: Home Anticipated Discharge Date: 01/23/19 Discharge Date: Expected LOS: 1 Initial Reviewer: [email or web address] Initial Review Date: 01/23/2019 Generated: 01/23/19 2:51 pm Patient Name: MAXWELL LOZA Page [phone] at 1352 All edits/amendments must be made on the electronic document DICTATION DATE: 01/23/19 1351 CUSTOMER RESOURCE SPECIALIST: HAYDEN 01/23/19 1351 RPT#: [id number] DC DATE: STATUS: ADM IN [facility] [address] [place] [address] END OF REPORT
--- NOTE | 2019-01-23 14:00 | MORECARE ---
CASE MANAGEMENT DISCHARGE SUMMARY PATIENT: MAXWELL LOZA UNIT: [id number] ADM DATE: 01/22/19 AGE: 33 : [birth year] SEX: F ROOM/BED: D.2225 AUTHOR: MARY DUMONT PHYSICIAN: REFERRING PHYSICIAN: JEFFREY MADDEN MD DATE OF SERVICE: 01/23/19 Discharge Plan Patient Name: MAXWELL LOZA Facility: [facility]:[place] : 1985 Planned Disposition: Home Anticipated Discharge Date: 01/23/19 Discharge Date: Expected LOS: 1 Initial Reviewer: [email or web address] Initial Review Date: 01/23/2019 Generated: 01/23/19 3:00 pm DCPIA - Discharge Planning Initial Assessment Updated by [email or web address]: Mica Bailon on 01/23/19 1:52 pm * Is the patient Alert and Oriented? Yes * How many steps to enter\exit or inside your home? 3/0 * PCP Dr. Irizarry * Pharmacy [facility] in [place] * Preadmission Environment Home with Family * ADLs Independent * Equipment Bedside Commode Cane Shower Chair Walker * List name and contact numbers for known caregivers / representatives who currently or will assist patient after discharge: Isabela Jackson - [facility] - [phone] * Verbal permission to speak to the caregivers and representatives has been obtained from the patient. Yes * Community resources currently utilized None * Additional services required to return to the preadmission environment? No * Can the patient safely return to the preadmission environment? Yes * Has this patient been hospitalized within the prior 30 days at any hospital? No Last DP export: 01/23/19 12:51 p Patient Name: MAXWELL LOZA Page 50953 at 1400 All edits/amendments must be made on the electronic document DICTATION DATE: 01/23/19 135 PEDIATRIC SPORTS MEDICINE SPECIALIST: HAYDEN 01/23/19 1359 RPT#: [id number] DC DATE: STATUS: ADM IN [facility] [address] [place] [address] END OF REPORT
--- NOTE | 2019-01-23 14:07 | MORECARE ---
CASE MANAGEMENT DISCHARGE SUMMARY PATIENT: MAXWELL LOZA UNIT: [id number] ADM DATE: 01/22/19 AGE: 33 : 83 SEX: F ROOM/BED: D.2225 AUTHOR: TIMDOC PHYSICIAN: REFERRING PHYSICIAN: JEFFREY FITZGERALD MD DATE OF SERVICE: 01/23/19 Discharge Plan Patient Name: MAXWELL LOZA Facility: [facility]:[place] : 1985 Planned Disposition: Home Anticipated Discharge Date: 01/23/19 Discharge Date: Expected LOS: 1 Initial Reviewer: [email or web address] Initial Review Date: 01/23/2019 Generated: 01/23/19 3:06 pm Comments DCP- Discharge Planning Updated by [email or web address]: Mica Bailon on 01/23/19 1:[address] Patient Name: MAXWELL LOZA Admission Status: ER Accout number: [id number] Admission Date: 01-22-2019 : 1985 Admission Diagnosis: Attending: JEFFREY FITZGERALD Current LOS: 1 Anticipated DC Date: 01-23-2019 Planned Disposition: Home Primary Insurance: [employer] CHOICE PPO MCR ADVANT Discharge Planning Comments: CM met with patient to discuss discharge planning/needs, she is alone in the room. I informed her that she had discharge orders written. She states "I'm not going home until they find out what's wrong with me." I informed her that she was not acutely ill and was not meeting inpatient criteria for hospitalization. I informed her that she should follow up with her PCP, Dr. Irizarry. She states "I'm not going to follow up with him, he's an idiot." I informed her how she could change to another primary doctor if she was not happy with Dr. Irizarry. She states their are no other doctors in her surrounding area. I asked her to see if some family or friends could refer her to another physician in her area. She states "I need a medical marijuana doctor." I informed her that I would ask Dr. Fitzgerald to see her prior to discharge. I spoke with Dr. Fitzgerald and Kerri Doss and they have asked me to discontinue her pain medicine and her Xanax, which I did. She lives with her mother and she states that she has all the equipment she needs, states her father had everything and he is now . No needs identified at this time. CM will continue to follow and assist with discharge planning/needs. Concrete Bucket Hooker: Mica Bailon DCPIA - Discharge Planning Initial Assessment Updated by [email or web address]: Mica Bailon on 01/23/19 1:52 pm * Is the patient Alert and Oriented? Yes * How many steps to enter\\exit or inside your home? 3/0 * PCP Dr. Irizarry * Pharmacy [facility] in [place] * Preadmission Environment Home with Family * ADLs Independent * Equipment Bedside Commode Cane Shower Chair Walker * List name and contact numbers for known caregivers / representatives who currently or will assist patient after discharge: Isabela Jackson - mother - [phone] * Verbal permission to speak to the caregivers and representatives has been obtained from the patient. Yes * Community resources currently utilized None * Additional services required to return to the preadmission environment? No * Can the patient safely return to the preadmission environment? Yes * Has this patient been hospitalized within the prior 30 days at any hospital? No Last DP export: 01/23/19 1:00 p Patient Name: MAXWELL LOZA Page 56400 at 1407 All edits/amendments must be made on the electronic document DICTATION DATE: 01/23/191405 UTILITY PERSON: HAYDEN 01/23/191405 RPT#: [id number] DE DATE: STATUS: ADM IN [facility] [address] [place] [address] END OF REPORT
--- NOTE | 2019-01-23 14:11 | NUR ---
PATIENT STATES SHE IS NOT LEAVING UNTIL WE FIND OUT WHAT IS WRONG WITH HER.
--- NOTE | 2019-01-23 14:58 | NUR ---
PATIENT TOLD ME SHE WAS GOING TO GO SMOKE AND SHE WOULD MY PAPERS WHEN SHE GOT BACK.
--- NOTE | 2019-01-23 15:22 | NUR ---
DISCHARGE INSTRUCTIONS GIVEN. PATIENT VERBALIZED UNDERSTANDING. REQUESTS IBUPROFEN AND HER ZANAX. I EXPLAINED TO HER THAT I COULDN'T GIVE HER ANYTHING SHE HAS BEEN DISCHARGED. PATIENT SAYS THAT SHE WILL NOT BE GETTING THE MEDROL DOSEPAK BECAUSE PREDNISONE MAKES HER HEART RACE. I EXPLAINED SHE COULD HAVE A REBOUND EFFECT AND SHE REPLIED "I DON'T CARE"
== END 2019-01-23 16:14 | disposition home or self-care (01) | DRG 389 ==
LOC: D.ER 00:07 → D.MS 04:02
PROVIDERS: Family Medicine; ADMIT Family Medicine; ATTEND Family Medicine
DX: K56.609 Unspecified intestinal obstruction, unspecified as to partial versus complete obstruction (principal); F17.213 Nicotine dependence, cigarettes, with withdrawal; T78.3XXA Angioneurotic edema, initial encounter; E03.9 Hypothyroidism, unspecified

== ENCOUNTER 2019-01-24 21:34 | Emergency (ER) | payer MEDICARE, MEDICAID ==
[~2019-01-24] VITALS: Ht 157.5 cm; Wt 81.6 kg
[~2019-01-24 21:34] MED LIST changes: +MEDROL DOSE PACK4 MG PO; +Nicoderm [PBKC] TRANSDERM
[2019-01-24 21:43] VITALS: Ht 157.5 cm; Wt 81.6 kg
[2019-01-24 23:29] LABS: BASOPHILS 0 % (0-2); EOSINOPHILS 0.1 % (0-7); HEMATOCRIT 36.8 % (36.0-48.0); HEMOGLOBIN 12.5 g/dL (12-16); IMMATURE GRANULOCYTES 0.3 % (0-5); LYMPHOCYTES 16.6 % (15-50); MCH 33.4 pg (26.0-34.0); MCV 98.4 fL (80.0-100.0); MEAN PLATELET VOLUME 10.8 fL (7.4-10.4); MONOCYTES 9.8 % (2-11); NEUTROPHILS 73.2 % (40-80); PLATELET COUNT 182 10x3/uL (130-400); RBC 3.74 10x6/uL (4.00-5.40); RDW 13.2 % (11.5-14.5); WBC 12.5 10x3/uL (4.8-10.8)
[2019-01-24 23:38] LABS: APPEARANCE CLEAR (CLEAR); BILIRUBIN NEGATIVE (NEGATIVE); COLOR YELLOW (YELLOW); GLUCOSE NEGATIVE (NEGATIVE); HCG URINE NEGATIVE (NEGATIVE); KETONE NEGATIVE (NEGATIVE); NITRITE NEGATIVE (NEGATIVE); PROTEIN NEGATIVE (NEGATIVE); UROBILINOGEN NORMAL (NORMAL)
[2019-01-24 23:53] LABS: ALBUMIN 2.9 g/dL (3.4-5.0); ANION GAP 10.7 mmol/L (8-16); BILIRUBIN - TOTAL 0.17 mg/dL (0.2-1.3); CALCIUM 8.3 mg/dL (8.5-10.1); CARBON DIOXIDE 28.1 mmol/L (21.0-32.0); POTASSIUM - SERUM 3.8 mmol/L (3.5-5.1); PROTEIN - SERUM 5.9 g/dL (6.4-8.2)
[2019-01-24 23:57] LABS: CREATININE - SERUM 1.1 mg/dL (0.6-1.3)
[2019-01-25] MEDS ORDERED: CIPRO500 MG PO ×2 (00:43→00:59)
[2019-01-25] MEDS ORDERED: FLAGYL500 MG PO ×2 (00:43→00:59)
[2019-01-25] MEDS ORDERED: BENTYL 20 MG TA20 MG PO (00:59)
[2019-01-25 01:49] VITALS: BP 152/91
== END 2019-01-25 01:50 | disposition home or self-care (01) ==
LOC: D.ER 21:34
PROVIDERS: Family Medicine
DX: K52.9 Noninfective gastroenteritis and colitis, unspecified (principal)

== ENCOUNTER 2019-02-01 16:21 | Emergency (ER) | payer MEDICARE, MEDICAID ==
[~2019-02-01] VITALS: Ht 157.5 cm; Wt 70.5 kg
[~2019-02-01 16:21] MED LIST changes: +BENTYL 20 MG TA20 MG PO; +CIPRO500 MG PO; +FLAGYL500 MG PO
[2019-02-01 16:24] VITALS: Ht 157.5 cm; Wt 70.5 kg
[2019-02-01 16:40] LABS: BASOPHILS 0.2 % (0-2); EOSINOPHILS 3.5 % (0-7); HEMATOCRIT 40.6 % (36.0-48.0); IMMATURE GRANULOCYTES 0.6 % (0-5); LYMPHOCYTES 29.6 % (15-50); MCHC 34.5 g/dL (31.0-37.0); MCV 95.8 fL (80.0-100.0); MEAN PLATELET VOLUME 10.5 fL (7.4-10.4); MONOCYTES 16.7 % (2-11); NEUTROPHILS 49.4 % (40-80); PLATELET COUNT 171 10x3/uL (130-400); RBC 4.24 10x6/uL (4.00-5.40); RDW 13.1 % (11.5-14.5); WBC 8.1 10x3/uL (4.8-10.8)
[2019-02-01 16:53] LABS: ALBUMIN 3.2 g/dL (3.4-5.0); ANION GAP 12.8 mmol/L (8-16); BILIRUBIN - TOTAL 0.23 mg/dL (0.2-1.3); CALCIUM 9.2 mg/dL (8.5-10.1); CARBON DIOXIDE 25.6 mmol/L (21.0-32.0); CREATININE - SERUM 1.7 mg/dL (0.6-1.3); POTASSIUM - SERUM 4.4 mmol/L (3.5-5.1)
[2019-02-01 17:38] LABS: APPEARANCE CLEAR (CLEAR); BILIRUBIN NEGATIVE (NEGATIVE); COLOR YELLOW (YELLOW); GLUCOSE NEGATIVE (NEGATIVE); KETONE NEGATIVE (NEGATIVE); NITRITE NEGATIVE (NEGATIVE); PROTEIN NEGATIVE (NEGATIVE); SPECIFIC GRAVITY 1.015 (1.005-1.020); UROBILINOGEN NORMAL (NORMAL)
[2019-02-01 18:06] VITALS: BP 122/68
== END 2019-02-01 18:07 | disposition home or self-care (01) ==
LOC: D.ER 16:21
PROVIDERS: Emergency Medicine
DX: R10.31 Right lower quadrant pain (principal)

== ENCOUNTER 2020-01-21 19:10 | Emergency (ER) | payer MEDICARE, MEDICAID ==
[~2020-01-21] VITALS: Ht 157.5 cm; Wt 76.4 kg
[2020-01-21 19:15] VITALS: Ht 157.5 cm; Wt 76.4 kg
[2020-01-21 19:59] LABS: BILIRUBIN NEGATIVE (NEGATIVE); GLUCOSE NEGATIVE (NEGATIVE); KETONE NEGATIVE (NEGATIVE); NITRITE NEGATIVE (NEGATIVE); UDS - AMPHET NEGATIVE QUAL (NEGATIVE); UDS - BARB NEGATIVE QUAL (NEGATIVE); UDS - BENZO NEGATIVE QUAL (NEGATIVE); UDS - COCAINE NEGATIVE QUAL (NEGATIVE); UDS - OPIATE NEGATIVE QUAL (NEGATIVE); UDS - PCP NEGATIVE QUAL (NEGATIVE); UDS - THC NEGATIVE QUAL (NEGATIVE); UROBILINOGEN NORMAL (NORMAL)
[2020-01-21 20:15] LABS: BASOPHILS 0.3 % (0-2); EOSINOPHILS 1.5 % (0-7); HEMATOCRIT 39.5 % (36.0-48.0); HEMOGLOBIN 13.8 g/dL (12-16); IMMATURE GRANULOCYTES 0.2 % (0-5); LYMPHOCYTES 25.7 % (15-50); MCH 32.9 pg (26.0-34.0); MCHC 34.9 g/dL (31.0-37.0); MEAN PLATELET VOLUME 9.8 fL (7.4-10.4); NEUTROPHILS 59.3 % (40-80); RDW 12.8 % (11.5-14.5); WBC 6.5 10x3/uL (4.8-10.8)
[2020-01-21 20:16] LABS: PLATELET COUNT 210 10x3/uL (130-400)
[2020-01-21 20:24] LABS: ANION GAP 10.9 mmol/L (8-16); CALCIUM 8.9 mg/dL (8.5-10.1); CARBON DIOXIDE 28.2 mmol/L (21.0-32.0); CREATININE - SERUM 1.3 mg/dL (0.6-1.3); POTASSIUM - SERUM 3.1 mmol/L (3.5-5.1)
[2020-01-21 20:37] LABS: ALBUMIN 3.5 g/dL (3.4-5.0); BILIRUBIN - TOTAL 0.4 mg/dL (0.2-1.3); C-REACTIVE PROTEIN 0.6 mg/dL (0.0-0.9); PROTEIN - SERUM 7.2 g/dL (6.4-8.2)
[2020-01-21 22:40] VITALS: BP 124/78
== END 2020-01-21 21:30 | disposition home or self-care (01) ==
LOC: D.ER 19:10
PROVIDERS: Family Medicine
DX: R10.9 Unspecified abdominal pain (principal); I10 Essential (primary) hypertension; K21.9 Gastro-esophageal reflux disease without esophagitis; Z72.0 Tobacco use; E07.9 Disorder of thyroid, unspecified

== ENCOUNTER 2020-01-25 17:20 | Emergency (ER) | payer MEDICARE, MEDICAID ==
[~2020-01-25] VITALS: Ht 157.5 cm; Wt 74.8 kg
[2020-01-25 17:49] VITALS: BP 127/86; Ht 157.5 cm; Wt 74.8 kg
[2020-01-25 18:45] LABS: CALC OSMOLALITY 262 mosm/kg (275-300); CALCIUM 9.1 mg/dL (8.5-10.1); CARBON DIOXIDE 27.3 mmol/L (21.0-32.0); CHLORIDE - SERUM 96 mmol/L (98-107); CREATININE - SERUM 1.3 mg/dL (0.6-1.3); GLUCOSE 86 mg/dL (74-106); POTASSIUM - SERUM 3.5 mmol/L (3.5-5.1); SODIUM 131 mmol/L (136-145); UREA NITROGEN 14 mg/dL (7-18); eGFR NON AFRICAN AMERICAN 49 mL/min (90-120)
[2020-01-25 18:55] LABS: ALBUMIN 3.5 g/dL (3.4-5.0); ALKALINE PHOSPHATASE 65 U/L (30-120); ALT (SGPT) 101 U/L (10-68); AMYLASE - SERUM 56 U/L (25-115); BILIRUBIN - TOTAL 0.42 mg/dL (0.2-1.3); LIPASE 152 U/L (73-393); PROTEIN - SERUM 7.3 g/dL (6.4-8.2)
[2020-01-25 18:57] LABS: HEMATOCRIT 44.7 % (36.0-48.0); HEMOGLOBIN 15.9 g/dL (12-16); LYMPHOCYTES 36.7 % (15-50); MCH 33.1 pg (26.0-34.0); MCHC 35.6 g/dL (31.0-37.0); MCV 92.9 fL (80.0-100.0); MEAN PLATELET VOLUME 9.7 fL (7.4-10.4); NEUTROPHILS 51.5 % (40-80); RBC 4.81 10x6/uL (4.00-5.40); RDW 13.1 % (11.5-14.5); WBC 8.2 10x3/uL (4.8-10.8)
[2020-01-25 18:59] LABS: TROPONIN-I < 0.017 ng/mL (0.000-0.060)
[2020-01-25 19:03] LABS: PLATELET COUNT 260 10x3/uL (130-400)
[2020-01-25 19:43] LABS: BILIRUBIN NEGATIVE (NEGATIVE); GLUCOSE NEGATIVE (NEGATIVE); KETONE NEGATIVE (NEGATIVE); NITRITE NEGATIVE (NEGATIVE); UROBILINOGEN NORMAL (NORMAL)
[2020-01-25 19:45] LABS: BACTERIA FEW /hpf (NEGATIVE); EPITHELIAL CELLS 0-5 /hpf (0-5); RED CELLS - URINE 0-5 /hpf (0-5); WHITE CELLS - URINE 0-5 /hpf (NEGATIVE)
[2020-01-25 19:47] LABS: HCG URINE NEGATIVE (NEGATIVE)
== END 2020-01-25 20:37 | disposition left against medical advice (07) ==
LOC: D.ER 17:20
PROVIDERS: Emergency Medicine; Family Medicine
DX: R11.2 Nausea with vomiting, unspecified (principal); R10.9 Unspecified abdominal pain; Z53.29 Procedure and treatment not carried out because of patient's decision for other reasons; E07.9 Disorder of thyroid, unspecified; I10 Essential (primary) hypertension; Z72.0 Tobacco use